=== PATIENT | female | born 2000 | race Caucasian/White ===

== ENCOUNTER 2020-10-05 18:57 | Emergency (ER) | payer BC, SELFPAY ==
[2020-10-05 19:00] VITALS: BP 167/99; PULSE 111; RESP 14; TEMP 36.6; O2SAT 100
--- NOTE | 2020-10-05 20:01 | ED.ANIMALBIT ---
HPI - Animal Bite General Chief Complaint: Animal Bite Stated Complaint: right eye laceration, attacked by dog Time Seen by Provider: 10/05/20 19:50 Source: patient Mode of arrival: ambulatory Limitations: no limitations History of Present Illness HPI narrative: Patient is a 19 year old female who presents with complaints of a dog bite to face. She reports bit in the face by a friends dog. She reports dog is up to date with vaccines. Patient has laceration beneath right eye and to left upper lip. She denies other injuries, tetanus is not up to date. Patient has no significant medical history. MD complaint: animal bite Related Data Home Medications Medication Instructions Recorded Confirmed esomeprazole magnesium 20 mg 20 mg PO DAILY 09/23/20 capsule,delayed release norethindrone 1 mg-ethinyl 1 tablet PO DAILY 09/23/20 estradiol 20 mcg (21)-iron 75 mg (7) tablet Allergies Allergy/AdvReac Type Severity Reaction Status Date / Time amoxicillin Allergy Unknown Rash Verified 03/07/19 09:57 Review of Systems Review of Systems: Narrative: CONSTITUTIONAL: Denies fever, chills, or sweats. EYES: Denies visual changes, redness, or discharge. ENT: Denies rhinorrhea, congestion, sore throat, or otalgia. CARDIOVASCULAR: Denies chest pain, palpitations, or edema. RESPIRATORY: Denies cough or dyspnea. GASTROINTESTINAL: Denies abdominal pain, nausea, vomiting, or diarrhea. GENITOURINARY: Denies dysuria or hematuria. SKIN: Laceration under right eye, laceration left upper lip MUSCULOSKELETAL: Denies back pain, joint pain, or myalgia. NEUROLOGIC: Denies headache, numbness, dizziness, or weakness. PSYCHIATRIC: Denies anxiety or depression. [facility] Past Medical History Medical History Acid reflux BMI 45.0-49.9, adult Depression with anxiety Surgical History Surgical History History of tonsillectomy 2017 Family History Family History Grandparent Family history of human immunodeficiency virus infection, Onset Age: 35 Social History Social History Smoking status: Never smoker Alcohol intake: never Substance use: never Comments At the time of signature, I have reviewed and agree with nursing past medical, surgical, social, and family history unless otherwise noted. Please see nursing chart for further information. There is no relevant family history pertinent to the presenting complaint. Exam Narrative: Exam Narrative: GENERAL: Well-appearing, well-nourished, and in no acute distress. HEAD: Normocephalic, atraumatic. EYES: EOMI. No redness or drainage. Conjunctiva are normal. ENT: Mucous membranes pink and moist. Nares clear. No rhinorrhea. TMs normal bilaterally. Throat normal. Uvula midline. NECK: AROM. Supple. No lymphadenopathy. CHEST: No respiratory distress. Clear to auscultation. HEART: Regular rate and rhythm. No murmur appreciated. Normal peripheral pulses. GI: Soft, nontender without rebound, or guarding. No distention. Bowel sounds normal in all quadrants. MUSCULOSKELETAL: No bony tenderness. EXTREMITIES: Normal range of motion. No edema. SKIN: Approximate 1 cm laceration under right eye at lower eyelid, puncture wound to left upper lip at ofe border NEURO: No focal deficits. Alert and oriented x3. Gait steady. PSYCH: Normal affect. No signs of depression or anxiety. Course Vital Signs Vital signs: Vital Signs Temperature 36.6 C 10/05/20 19:00 Pulse Rate 111 H 10/05/20 19:00 Respiratory Rate 14 10/05/20 19:00 Blood Pressure 167/99 H 10/05/20 19:00 Pulse Oximetry 100 10/05/20 19:00 Temperature 36.6 C 10/05/20 19:00 Pulse Rate 111 H 10/05/20 19:00 Respiratory Rate 14 10/05/20 19:00 Blood Pressure 167/99 H
[2020-10-05] MEDS: TETANUS,DIPHTHERIA,AC PERTUSSIS ADULT (0.5 ML) BOOSTRIX IM (20:30)
[2020-10-05 20:54] VITALS: BP 150/89; PULSE 90; RESP 20; O2SAT 98
== END 2020-10-05 20:56 | disposition short-term general hospital (02) ==
PROVIDERS: Emergency Provider Nurse Practitioner; PCP Nurse Practitioner Family
DX: S01.551A Open bite of lip, initial encounter (principal); S01.151A Open bite of right eyelid and periocular area, initial encounter; R03.0 Elevated blood-pressure reading, without diagnosis of hypertension; Z23 Encounter for immunization; W54.0XXA Bitten by dog, initial encounter
CPT/HCPCS: 90471; 90715; 99282

== ENCOUNTER → 2020-12-23 07:49 | Outpatient (CLI) | payer BC, SELFPAY ==
--- NOTE | ~2020-12-23 | US_ITS ---
EXAMINATION: US right upper quadrant DATE: 12/23/2020 08:18 INDICATION: Right upper quadrant abdominal pain. TECHNIQUE: Multiple grayscale and Doppler ultrasound images of the abdomen were obtained. COMPARISON: None FINDINGS: Abdominal aorta is normal in caliber. Inferior vena cava is normal. The visualized portions of the head and body of the pancreas are normal. The liver is normal without focal lesion. No liver surface nodularity. There is normal flow in main portal vein. The gallbladder is normal in size. Ther e is a 5 mm polyp in the gallbladder, likely a benign cholesterol polyp that needs no follow-up. No g allstones or gallbladder wall thickening. There was no sonographic Gomez sign. The common duct is no rmal and measures 4 mm. IMPRESSION: 1. No etiology for the patient's symptoms. Reviewed, dictated and finalized at location A.
== END ==
PROVIDERS: PCP Nurse Practitioner Family; Visit Provider Nurse Practitioner Family
DX: R10.11 Right upper quadrant pain (principal)
CPT/HCPCS: 76705

== ENCOUNTER 2021-01-04 12:57 | Outpatient (CLI) | payer BC, SELFPAY ==
--- NOTE | ~2021-01-04 | NM_ITS ---
EXAMINATION: NM hepatobiliary wo pharm DATE: 01/04/2021 15:34 INDICATION: Right upper quadrant abdominal pain COMPARISON: None. TECHNIQUE: 4.3 mCi Tc-99m mebrofenin (Choletec) was administered intravenously. Scintigraphic images of the abdomen were obtained for one hour. At the 1 hour time point, the patient drank 8 oz Ensure, and imaging was continued for 60 minutes. Gallbladder ejection fraction was calculated by the technol ogist. FINDINGS: There is normal clearance of radiotracer from the blood pool. There is homogeneous tracer u ptake by the liver. Activity progresses to the bowel and gallbladder. The gallbladder ejection fract ion (GBEF) is 35%. Note that with this technique, normal GBEF >= 33%. IMPRESSION: 1. Normal hepatobiliary scan Reviewed, dictated and finalized at location B.
== END 2021-01-04 12:58 | disposition home or self-care (01) ==
PROVIDERS: PCP Nurse Practitioner Family; Visit Provider Family Medicine
DX: K82.4 Cholesterolosis of gallbladder (principal); R10.11 Right upper quadrant pain
CPT/HCPCS: 78226; A9537

== ENCOUNTER 2022-02-01 00:25 | Day surgery (SDC) | payer BC, SELFPAY ==
[2022-01-14 14:16] VITALS: BMI 48.0
[2022-02-01 09:02] VITALS: BP 148/84; PULSE 70; RESP 18; TEMP 36.4; O2SAT 99
--- NOTE | 2022-02-01 09:10 | WPDANESEPPF ---
Anes - Initial Pre Proc Eval Procedure: Operation Date: 02/01/22 10:15 Proposed Procedures p Esophagogastroduodenoscopy - Neil Ba MD Date/Time: 02/01/22 09:10 Surgeon: Neil Ba MD Pre Op Diagnosis: epigastric pain Patient Data Age: 21 Gender: F Height: 1.68 m Weight: 135.7 kg Last Vital Signs Temp 36.4 C 02/01/22 09:02 Pulse 70 02/01/22 09:02 Resp 18 02/01/22 09:02 BP 148/84 H 02/01/22 09:02 Pulse Ox 99 02/01/22 09:02 O2 Del Method Room Air 02/01/22 09:02 Allergies Allergy/AdvReac Type Severity Reaction Status Date / Time amoxicillin Allergy Unknown Rash Verified 02/01/22 09:00 Home Medications Medication Instructions Recorded Confirmed Type esomeprazole magnesium 20 mg 20 mg PO DAILY 09/23/20 01/14/22 History capsule,delayed release (Nexium 24HR) norethindrone 1 mg-ethinyl 1 tablet PO DAILY 09/23/20 01/14/22 History estradiol 20 mcg (21)-iron 75 mg (7) tablet (06/03 ()) venlafaxine 37.5 mg 37.5 mg PO DAILY #90 caps 06/30/21 01/14/22 Rx capsule,extended release 24 hr venlafaxine 75 mg capsule,extended 75 mg PO DAILY #90 caps 06/30/21 01/14/22 Rx release 24 hr folic acid 800 mcg tablet 0.8 mg PO DAILY 10/20/21 01/14/22 History mecobalamin (vitamin B12) 1,000 1,000 mcg PO DAILY 10/20/21 01/14/22 History mcg chewable tablet famotidine 40 mg tablet 40 mg PO QHS #30 tabs 12/30/21 01/14/22 Rx Adderall XR 20 mg capsule,extended 20 mg PO DAILY #30 caps 01/11/22 01/14/22 Rx release (dextroamphetamine-amphetamine) Patient hx anesthesia problems: none Family hx anesthesia problems: none Results Review: All pre-operative results and documents have been reviewed as part of the pre-operative evaluation. [facility] Past Medical History Medical History Abdominal pain Acid reflux Attention Deficit Hyperactivity Disorder (ADHD) B12 deficiency BMI 40.0-44.9, adult BMI 45.0-49.9, adult Chronic anxiety COVID-19 (~08/24/21) Depression with anxiety Elevated fasting blood sugar Epigastric pain Epigastric pain Folic acid deficiency Gallbladder polyp Hyperlipidemia Major depression, chronic Morbid obesity with BMI of 45.0-49.9, adult Nausea RUQ abdominal pain Screening for cardiovascular condition Surgical History Surgical History History of tonsillectomy 2017 Family History Family History Grandparent Family history of human immunodeficiency virus infection, Onset Age: 35 Social History Social History Smoking status: Never smoker Alcohol intake: current Drinks per week: 1 Substance use: current Substance use type: marijuana Other substance usage details: twice weekly Living arrangements: with family Spiritual care concerns: No Anes - Eval Final PreProcedure Day of Procedure 02/01/22 09:10 Patient weight: morbidly obese Heart: regular rate and rhythm Lungs: clear to auscultation Airway: Mallampati scale class II Neurological: alert and oriented Last oral intake: >/= 8 hours ASA classification: III Emergent: no Anesthetic plan: proceed Anesthesia type and monitoring: general GIVS and standard monitoring Results Review: All pre-operative results and documents have been reviewed as part of the pre-operative evaluation. Informed Consent: The patient's anesthetic plan and its attendant risks and benefits were discussed with the patient/family/POA. Questions were solicited and answers provided to the satisfaction of the patient/family/POA.
[2022-02-01] MEDS: LACTATED RINGERS 1,000 ML 150 ML IV CONT (09:11)
--- NOTE | 2022-02-01 09:32 | PM.HPGS ---
History of Present Illness History of Present Illness Consent: Risks, benefits, and alternatives have been discussed and questions answered. Patient agrees to proceed with procedure. Chief complaint: epigastric pain Narrative: Ara Bear is a 21 year old female with epigastric pain better with nexium and famotidine but never had EGD. GB ultrasound negative including hida scan. Review of Systems Constitutional: Constitutional: Denies headache(s) and Denies weakness Eyes: Eyes: Denies blurry vision ENT: Reports Normal hearing present, Denies headache(s) and Denies neck pain Cardiovascular: Cardiovascular: Denies chest pain and Denies dyspnea Respiratory: Respiratory: Denies dyspnea Gastrointestinal: Gastrointestinal: Reports no additional gastrointestinal complaints Genitourinary: Genitourinary: Denies dysuria Musculoskeletal: Musculoskeletal: Denies neck pain Integumentary/Breasts: Skin/Breast: Denies dry skin Neurologic: Reports Normal hearing present, Denies headache(s) and Denies weakness Psychiatric: Psychiatric: Denies anxiety Endocrine: Endocrine: Denies change in body appearance Hematologic/Lymphatic: Hematologic/Lymphatic: Denies easy bleeding Allergic/Immunologic: Allergic/Immunologic: Denies urticaria PMFSH Past Medical History Medical History Abdominal pain Acid reflux Attention Deficit Hyperactivity Disorder (ADHD) B12 deficiency BMI 40.0-44.9, adult BMI 45.0-49.9, adult Chronic anxiety COVID-19 (~08/24/21) Depression with anxiety Elevated fasting blood sugar Epigastric pain Epigastric pain Folic acid deficiency Gallbladder polyp Hyperlipidemia Major depression, chronic Morbid obesity with BMI of 45.0-49.9, adult Nausea RUQ abdominal pain Screening for cardiovascular condition Surgical History Surgical History History of tonsillectomy 2017 Family History Family History Grandparent Family history of human immunodeficiency virus infection, Onset Age: 35 Social History Social History Smoking status: Never smoker Alcohol intake: current Drinks per week: 1 Substance use: current Substance use type: marijuana Other substance usage details: twice weekly Living arrangements: with family Spiritual care concerns: No Meds Home Medications and Allergies Home Medications Medication Instructions Recorded Confirmed Type esomeprazole magnesium 20 mg 20 mg PO DAILY 09/23/20 01/14/22 History capsule,delayed release (Nexium 24HR) norethindrone 1 mg-ethinyl 1 tablet PO DAILY 09/23/20 01/14/22 History estradiol 20 mcg (21)-iron 75 mg (7) tablet (06/03 (28)) venlafaxine 37.5 mg 37.5 mg PO DAILY #90 caps 06/30/21 01/14/22 Rx capsule,extended release 24 hr venlafaxine 75 mg capsule,extended 75 mg PO DAILY #90 caps 06/30/21 01/14/22 Rx release 24 hr folic acid 800 mcg tablet 0.8 mg PO DAILY 10/20/21 01/14/22 History mecobalamin (vitamin B12) 1,000 1,000 mcg PO DAILY 10/20/21 01/14/22 History mcg chewable tablet famotidine 40 mg tablet 40 mg PO QHS #30 tabs 12/30/21 01/14/22 Rx Adderall XR 20 mg capsule,extended 20 mg PO DAILY #30 caps 01/11/22 01/14/22 Rx release (dextroamphetamine-amphetamine) Allergies Allergy/AdvReac Type Severity Reaction Status Date / Time amoxicillin Allergy Unknown Rash Verified 02/01/22 09:00 Vital Signs Vital Signs - 24 hr 02/01/22 09:02 Temperature 97.6 F Pulse Rate 70 Respiratory Rate 18 Blood Pressure 148/84 H Pulse Oximetry 99 Oxygen Delivery Room Air Exam Const: General: comfortable and no acute distress Other: obese HENMT: General nose exam: Normal nares present Eyes: General: appearance normal, both eyes and all related structures Nec
[2022-02-01 09:41] VITALS: BP 100/49; PULSE 74; RESP 25; O2SAT 97
[2022-02-01 09:51] VITALS: BP 105/56; PULSE 79; RESP 18; O2SAT 97
[2022-02-01 10:01] VITALS: BP 125/74; PULSE 65; RESP 20; O2SAT 98
== END 2022-02-01 10:16 | disposition home or self-care (01) ==
PROVIDERS: PCP Nurse Practitioner Family; Visit Provider Internal Medicine Gastroenterology
PROC: 0DJ08ZZ Inspection of Upper Intestinal Tract, Via Natural or Artificial Opening Endoscopic (ICD-10-PCS; CPT 43235; principal; 2022-02-01 10:15)
DX: R10.13 Epigastric pain (principal); R11.0 Nausea; F90.9 Attention-deficit hyperactivity disorder, unspecified type; E53.8 Deficiency of other specified B group vitamins; F41.8 Other specified anxiety disorders; E66.01 Morbid (severe) obesity due to excess calories; Z68.42 Body mass index [BMI] 45.0-49.9, adult; F12.90 Cannabis use, unspecified, uncomplicated
CPT/HCPCS: 43239; 88305; J2001; J2704; J7120

== ENCOUNTER → 2024-01-03 14:36 | Outpatient (CLI) | payer OTHER, SELFPAY ==
--- NOTE | ~2024-01-03 | XR_ITS ---
EXAMINATION: XR shoulder RT min 2V DATE: 01/03/2024 14:51 INDICATION: Right shoulder pain. TECHNIQUE: 4 views of right shoulder were obtained. COMPARISON: None. FINDINGS: Alignment is normal. No fracture. Joint spaces are normal. IMPRESSION: 1. Normal right shoulder. Reviewed, dictated and finalized at location A. IMPRESSION: 1. Normal right shoulder.
== END ==
LOC: EXPTROY 14:37
PROVIDERS: PCP Nurse Practitioner Family; Visit Provider Nurse Practitioner Family
DX: M25.511 Pain in right shoulder (principal)
CPT/HCPCS: 73030